=== PATIENT | male | born 1960 | race Caucasian/White ===

== ENCOUNTER → 2018-07-05 06:48 | Outpatient (CLI) | payer BC, SELFPAY ==
[2018-07-05 07:38] LABS: Blood Urea Nitrogen 15 mg/dL (7-18); Creatinine,Serum 1.01 mg/dL (0.70-1.30); Estimated Glomerular Filt Rate 75 ml/min (>60); GFR (African American) 91 ML/MIN (>60)
--- NOTE | 2018-07-05 07:44 | CT_ITS ---
CT angio coronary artery INDICATION: ITS.REASON: FAMILY HX OF CAD,ELEVATED CHOLESTEROL ORDERING PHYSICIAN: Chicho Houser MD PATIENT AGE: 58 years COMPARISON: None TECHNIQUE: Bradycardia was obtained with 50 mg by mouth metoprolol. Standard gated technique with intravenous administration of 60 mL of Isovue-370. Multi plantar, curved planar reformats, and 3-D reformatted polymerase drain images are obtained.. All CT scans at the facility use one or more dose reduction, viz: automated exposure control, ma/kV adjustment per patient size (including targeted exams where dose is matched to indication, i.e. head), or iterative reconstruction technique. FINDINGS: There is mild prominence of the coronary cusp from which the left main coronary artery originates. This is of questionable clinical significance. There is a small amount of eccentric calcific plaque at the left main coronary artery without significant stenosis. This is causing approximately 20% narrowing of the ostium of the left main coronary artery. Eccentric calcific plaque is also present involving the proximal aspect of the LAD with approximately 25% luminal narrowing. Small amount of soft plaque is present just distal to the calcific plaque with no significant narrowing. The ventricles have an unremarkable appearance. There is left-sided dominance with the circumflex giving rise to the GDA and posterior lateral branch to the left ventricle. The PLB is a fairly prominent vessel. There is a small amount of soft plaque involving the distal aspect of the circumflex just proximal to the posterior lateral branch to the left ventricle origin causing approximately 30% stenosis. The right coronary artery a smaller vessel. No significant plaque appearance. IMPRESSION: 1. Calcific plaque at the ostium of the left main coronary artery with approximately 20% stenosis 2. Small area of calcific plaque at the proximal LAD with approximately 25% luminal narrowing with a small amount soft plaque distal to this region 3. Left-sided dominance with small amount soft plaque at the distal circumflex with approximately 30% stenosis
== END ==
PROVIDERS: PCP Family Medicine; Visit Provider Family Medicine
DX: E78.00 Pure hypercholesterolemia, unspecified (principal); Z82.49 Family history of ischemic heart disease and other diseases of the circulatory system
CPT/HCPCS: 75574; 82565; 84520; Q9967

== ENCOUNTER → 2021-09-21 13:04 | Outpatient (CLI) | payer BC, SELFPAY ==
--- NOTE | 2021-09-21 13:11 | CT_ITS ---
FINAL REPORT CLINICAL HISTORY: FLANK PAIN, MICROSCOPIC HEMATURIA FINDINGS: Axial CT images of the abdomen and pelvis were obtained without intravenous contrast. Coronal reformatted images were also obtained.This study was performed with techniques to keep radiation doses as low as reasonably achievable (ALARA). Individualized dose reduction techniques using automated exposure control or adjustment of mA and/or kV according to the patient''s size were employed. Abdomen: The lung bases are clear. There is mild right hydronephrosis secondary to a 7 mm right UPJ stone. There are gallstones in the gallbladder. The liver, spleen and pancreas have an unremarkable, unenhanced appearance. No mass or adenopathy is seen. No inflammatory process is identified. Pelvis: The appendix is normal. There are multiple mildly enlarged mesenteric nodes which may be reactive. There is sigmoid diverticulosis with no evidence of diverticulitis. There is a small left inguinal hernia containing fat. IMPRESSION: 7 mm right UPJ stone resulting in mild right hydronephrosis. Gallstones in the gallbladder. Multiple mildly enlarged mesenteric nodes may be reactive. Reviewed, Interpreted and Dictated by Derek Gonzalez III, MD Transcribed by Nikki Jordan Authenticated by Derek Gonzalez III, MD on 09/21/2021 03:25:40 PM [facility]
== END ==
PROVIDERS: PCP Family Medicine; Visit Provider Family Medicine
DX: R10.9 Unspecified abdominal pain (principal); R31.29 Other microscopic hematuria
CPT/HCPCS: 74176

== ENCOUNTER → 2022-07-28 10:20 | Outpatient (CLI) | payer BC, SELFPAY ==
[2022-07-28 19:29] LABS: Chloride 102 mmol/L (98-107); Potassium 4.2 mmoL/L (3.5-5.1); Sodium 138 mmol/L (136-145)
[2022-07-28 19:31] LABS: Blood Urea Nitrogen 12 mg/dl (9-20); Estimated Glomerular Filt Rate 85 ml/min (>60); GFR (African American) 103 ML/MIN (>60)
[2022-07-28 19:32] LABS: Alanine Aminotransferase 24 U/L (12-78); Albumin Level 4.7 g/dl (3.5-5.0); Albumin/Globulin Ratio 1.9 (1.1-1.8); Alkaline Phosphatase 58 U/L (38-126); Anion Gap 14.2 mEq/L (5-15); Aspartate Amino Transferase 28 U/L (17-59); Calcium 9.4 mg/dl (8.4-10.2); Carbon Dioxide 26 mmol/L (22.0-30.0); Chol/HDL Ratio 3.4 (1-3.5); Cholesterol 195 mg/dl (140-200); Globulin 2.5 g/dL (1.3-3.2); Glucose 97 mg/dl (74-100); HDL Cholesterol 57 mg/dl (40-60); Total Protein,Serum 7.2 g/dl (6.3-8.2); Triglycerides 126 mg/dl (30-150); VLDL Cholesterol 25 mg/dL (0-40)
[2022-07-28 19:44] LABS: Direct LDL Cholesterol 104.26 mg/dL (100-129)
[2022-07-28 20:02] LABS: Prostate Specific Ag Screen 1.2 ng/ml (0.0-4.0); Thyroid Stimulating Hormone 1.48 uIU/mL (0.465-4.68)
== END ==
PROVIDERS: PCP Family Medicine; Visit Provider Family Medicine
DX: E78.5 Hyperlipidemia, unspecified (principal); R30.0 Dysuria; R31.29 Other microscopic hematuria; Z51.81 Encounter for therapeutic drug level monitoring; Z79.01 Long term (current) use of anticoagulants; Z12.5 Encounter for screening for malignant neoplasm of prostate
CPT/HCPCS: 80053; 80061; 84443; 87086; G0103

== ENCOUNTER 2023-02-17 11:05 | Emergency (ER) | payer BC, SELFPAY ==
[2023-02-17 11:16] VITALS: BP 145/95; PULSE 75; RESP 16; TEMP 36.6; O2SAT 95; BMI 25.8
--- NOTE | 2023-02-17 11:17 | CT_ITS ---
FINAL REPORT TECHNIQUE: Noncontrast exam CLINICAL HISTORY: flank pain, hematuria hx of kidney stones COMPARISON: 09/21/2021 FINDINGS: Abdomen: Lung bases are clear. Liver, spleen, pancreas and adrenal glands have a normal CT appearance in their limited unenhanced state. The gallbladder is surgically absent. The kidneys show no stone disease or obstruction. No obvious renal mass is present. No ureteral stones are present. Pelvis: No distal ureteral stones are seen. Bladder wall is thickened with adjacent stranding, which may represent cystitis. The appendix is normal in appearance. Mild sigmoid diverticulosis is present.. No fluid collection or adenopathy is seen. IMPRESSION: No evidence of upper urinary tract stone disease or obstruction Bladder wall thickening with adjacent stranding which may represent inflammatory change. Correlate with urinalysis. Reviewed, Interpreted and Dictated by Aurora Jean MD Transcribed by Lora Jiménez Authenticated and [facility]
--- NOTE | 2023-02-17 11:18 | HMH.EDGENADL ---
Discharge Plan Disposition Patient Disposition: Home, Self-Care Condition: Good Prescriptions Prescriptions: No Action Xarelto 10 mg tablet 10 mg PO DAILY atorvastatin 10 mg tablet 10 mg PO DAILY Patient Comments: TAKE 1 TABLET BY MOUTH EVERY DAY sertraline 50 mg tablet See Rx Instructions .ROUTE .COMPLEX Qty: 90 0RF Dose Instruction: TAKE 1 TABLET BY MOUTH EVERY DAY Rx Instructions: TAKE 1 TABLET BY MOUTH EVERY DAY Referrals Follow up/Referrals: Chicho Houser MD [Primary Care Provider] - See instructions James Ariza MD [Referring] - See instructions Activity Restrictions/Add. Instructions Additional Instructions/Restrictions: You were evaluated in the emergency department today. Please follow-up closely with your primary care provider. I am also giving you the information for Dr. Ariza, who is a urologist. I recommend close follow-up with him. Urology will be able to do further testing to determine why you are having hematuria, as there is no evidence of stones on CT scan. Return to the emergency department for any new or worsening symptoms. Make sure that you stay orally hydrated at home. Clinical Impressions Clinical Impression: Gross hematuria Instructions Patient Instructions: DI for Acute Abdominal Pain, DI for Hematuria Discharge ED Provider: Kalani Quiñones General Adult HPI General Chief complaint: Abdominal Pain Stated complaint: blood in urine Time Seen by Provider: 02/17/23 11:12 History of Present Illness HPI narrative: This patient is a 63-year-old male with a history of PE on Xarelto, hyperlipidemia, panic disorder, and multiple kidney stones in the past presenting to the emergency department for evaluation of hematuria and bilateral flank pain. He reports that this has been intermittent for the past 3 weeks. 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 He states that he is he is still and does not do a lot of activity, he does not have hematuria or flank pain. He denies any fevers, chills, nausea, vomiting, changes in bowel movements, dysuria, urinary retention, or other concerns. Related Data Home Medications Medication Instructions Recorded Confirmed atorvastatin 10 mg tablet 10 mg PO DAILY 07/28/22 07/28/22 rivaroxaban 10 mg tablet (Xarelto) 10 mg PO DAILY 07/28/22 07/28/22 Previous Rx's Medication Instructions Recorded sertraline 50 mg tablet See Rx Instructions .Route 01/24/23 .COMPLEX #90 tabs Allergies Allergy/AdvReac Type Severity Reaction Status Date / Time No Known Drug Allergies Allergy Unknown Verified 07/28/22 09:07 [NKDA] [facility] Disclaimer: The information contained in this section may have been updated after the patient was seen, as this information can be updated by other users. Medical History Dysuria History of pulmonary embolism Hyperlipidemia correction current use of anticoagulant Social History Smoking Status: Former smoker alcohol intake: current current occupational status: employed Travel in the last 8 weeks: None ROS Obtained: Yes All systems reviewed & no additional complaints except as documented 14 point review of systems obtained and negative except as mentioned in HPI Physical Exam General General appearance: alert and in no apparent distress Head Head exam: atraumatic and normocephalic Eye Eye exam: Present normal appearance, PERRL and EOMI ENT ENT exam: Present normal exam, normal oropharynx and mucous membranes moist Neck Neck exam: Present normal inspection and full ROM; Absent trachea midline Chest Chest inspection: Present normal inspection and symmetric chest wall rise; Absent tenderness Respiratory Respiratory exam: Present normal lung sounds bilaterally; Absent respiratory distress or
[2023-02-17 11:28] LABS: Microscopic, Urine URINE MICROSCOPIC (MICROSCOPIC)
[2023-02-17 11:40] LABS: Basophils # 0.1 K/mm3 (0-0.2); Basophils % 0.9 % (0.1-2.0); Eosinophils # 0.1 K/mm3 (0.0-0.4); Eosinophils % 1.7 % (0.1-12.0); Hematocrit 45.5 % (42.0-52.0); Hemoglobin 14.6 g/dL (14.1-18.0); Lymphocytes # 1.3 K/mm3 (0.7-4.5); Lymphocytes % 26.6 % (10-50); Mean Corpuscular Volume 100.1 fl (80-94); Mean Platelet Volume 8.1 fl (7.4-10.4); Monocytes # 0.3 K/mm3 (0.1-1.0); Monocytes % 6.3 % (1.7-9.3); Neutrophils # 3.2 K/mm3 (1.8-7.8); Neutrophils % 64.5 % (37.0-80.0); Platelet Count 193 K/mm3 (142-424); Red Blood Count 4.54 M/mm3 (4.60-6.20); Red Cell Distribution Width 13.3 % (11.5-17.5)
[2023-02-17 11:46] LABS: Appearance,Urine SL CLOUDY (Clear); Blood, Urine 3+ (Negative); Color,Urine AMBER (Yellow); Glucose,Urine (UA) Negative (Negative); Ketones,Urine Negative (Negative); Leukocyte Esterase,Urine Negative (Negative); Nitrate,Urine Negative (Negative); PH,Urine 7.5 (5.0-8.5); Protein,Urine 1+ (Negative)
[2023-02-17 11:47] LABS: Chloride 104 mmol/L (98-107); Potassium 4.1 mmoL/L (3.5-5.1); Sodium 138 mmol/L (136-145)
[2023-02-17 11:50] LABS: Blood Urea Nitrogen 23 mg/dl (9-20); Creatinine Clearance Estimated 85 mL/min (50-200); Estimated Glomerular Filt Rate 85 ml/min (>60); GFR (African American) 102 ML/MIN (>60)
[2023-02-17 11:51] LABS: Anion Gap 9.1 mEq/L (5-15); Calcium 9.5 mg/dl (8.4-10.2); Carbon Dioxide 29 mmol/L (22.0-30.0); Glucose 99 mg/dl (74-100)
[2023-02-17 12:00] LABS: Bacteria,Urine Trace /lpf; Bilirubin,Urine Negative (Negative); RBC,Urine 20-50 #/hpf (0-3); Squamous Epithelial Cell,Urine Occasional #/hpf (0-5)
--- NOTE | 2023-02-17 12:00 | PC.NURSE ---
ROUNDED ON PT NOTHING NEEDED AT THIS TIME, CALL LIGHT AT BS
[2023-02-17 12:11] LABS: Activated Partial Thrombo Time 25.8 seconds (22.8-30.6); INR 1.03 (0.9-1.1); Prothrombin Time 11.1 seconds (10.1-12.5)
[2023-02-17 12:25] VITALS: BP 123/83; PULSE 70; O2SAT 100
--- NOTE | 2023-02-17 12:27 | PC.NURSE ---
rounded on pt at this time, no needs voiced. updated pt on POC. awaiting for the results from RAD report. behavioral health technician states that scan is in locked status
[2023-02-17 12:46] VITALS: BP 128/76; PULSE 66; O2SAT 98
--- NOTE | 2023-02-17 12:46 | PC.NURSE ---
rounded on pt, no needs at this time, updated pt
[2023-02-17 13:00] VITALS: BP 135/79; PULSE 66; O2SAT 99
[2023-02-17 13:16] VITALS: BP 135/79; PULSE 66; RESP 16; TEMP 36.6
== END 2023-02-17 13:20 | disposition home or self-care (01) ==
PROVIDERS: Emergency Provider Emergency Medicine; PCP Family Medicine
DX: R10.9 Unspecified abdominal pain (principal); R31.9 Hematuria, unspecified; E78.5 Hyperlipidemia, unspecified; Z79.01 Long term (current) use of anticoagulants; Z87.891 Personal history of nicotine dependence
CPT/HCPCS: 74176; 80048; 81001; 85025; 85610; 85730; 87086; 99285

== ENCOUNTER 2025-06-06 07:59 | Day surgery (SDC) | payer BC, SELFPAY ==
--- NOTE | 2025-06-04 07:34 | P.HP_ITS ---
History of Present Illness *Admission Date: 06/06/25 *History of present illness: Mr. Murray is a 65-year-old gentleman who is here for screening/surveillance colonoscopy. The patient's last colonoscopy was in 2007. The examination is deemed medically necessary for screening/surveillance colonoscopy. The patient has been seen, interviewed and examined prior to the procedure by both myself and the anesthesia provider. [facility] Disclaimer: The information contained in this section may have been updated after the patient was seen, as this information can be updated by other users. 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 History of pulmonary embolism Dysuria Hyperlipidemia Surgical History History of bladder surgery Family History Other Family history of heart disease Social History Smoking Status: Former smoker alcohol intake: never current occupational status: employed and retired Travel in the last 8 weeks?: None Have you lived/traveled outside [place] in past 30 days?: No Contact w/someone who lives/traveled outside US past 30 days?: No Exposure to someone with infectious disease in past 14 days?: No Do you have a fever (greater than 100.4 F or 38 C)?: No Have you tested positive for COVID-19?: No Exposed to someone with COVID-19 in past 14 days?: No Do you have a sore throat?: No Do you have a cough?: No Do you have any weakness?: No Are you experiencing any nausea/vomitting?: No Do you have any diarrhea?: No Are you experiencing any unusual bleeding?: No Do you have any muscle aches/pain?: No Do you have any abdominal pain?: No Are you experiencing loss of taste or smell?: No Other Medical History Have you received the Flu Vaccine for this season: Yes Have you received the Pneumonia Vaccine: No Review of Systems Review of Systems Review of systems (narrative): Negative *Cardiovascular Comments: Negative *Gastrointestinal Comments: Negative *Genitourinary Comments: Negative *Musculoskeletal Comments: Negative *Neurologic Comments: Negative Meds Home Medications and Allergies Home Medications ?Medication ?Instructions ?Recorded ?Confirmed ?Type atorvastatin 10 mg tablet 10 mg PO DAILY 07/28/2205/25 History rivaroxaban 10 mg tablet (Xarelto) 10 mg PO DAILY 11/1406/06/25 History sertraline 50 mg tablet See Rx Instructions .Route 0 01/24/23 06/06/25 Rx .COMPLEX #90 tabs sodium,potassium,mag sulfates 17.5 See Rx Instructions PO .COMPLEX 05/23/25 06/06/25 Rx gram-3.13 gram-1.6 gram oral soln #354 mL (Suprep Bowel Prep Kit) sodium,potassium,mag sulfates 17.5 See Rx Instructions PO .COMPLEX 05/24/25 06/06/25 Rx gram-3.13 gram-1.6 gram oral soln #354 mL (Suprep Bowel Prep Kit) New Prescriptions to Start Prescriptions: Allergies Allergy/AdvReac Type Severity Reaction Status Date / Time No Known Drug Allergies Allergy Unknown Verified 07/28/22 09:07 (NKDA) Exam *Routine HEENT Exam Head: Present normocephalic Eye: Present EOMI and PERRL ENT: Present mucous membranes moist *Routine Neck Exam Neck: Present supple *Routine Respiratory Exam Respiratory: Present CTA bilaterally *Routine Cardiovascular Exam Cardiovascular: Present RRR *Routine Abdominal Exam Abdominal: Present soft and normoactive bowel sounds; Absent tenderness *Routine Rectal Exam Rectal:: deferred *Routine Genitalia Exam Genitalia:: deferred *Routine Extremities Exam Extremities: Absent cyanosis, clubbing or edema *Routine Skin Exam Skin: Present warm; Absent rash *Routine Neurological Exam Neurological: Present alert and oriented X3 Assessment and Plan *Assessment and plan (1) Screening for colon cancer: Status: Acute Category: Medical Code(s): Z12.11 - Encounter for screening for malignant neoplasm of colon Plan A/P: 1. Screening for colon cancer is the preprocedural diagnosis. The patient will be anesthetized/sedated using MAC sedation. The patient has been seen and examined. Cardiac and lung assessment prior to the examination is stable. Proceed with planned screening colonoscopy.
[2025-06-05 16:00] VITALS: BMI 27.2
--- NOTE | 2025-06-06 06:53 | HMH.PROCNOTE ---
[facility] Procedure Note Date: 06/06/25 Time: 09:58 Procedure Note:: Colonoscopy Procedure Report: Colonoscopy with cold snare polypectomy Endoscopist: Tyrel Kumar II, MD Referring physician: Chicho Houser MD Date of Procedure: June 06, 2025 Equipment: Olympus [id number] adult colonoscope Sedation: MAC sedation Indication: Mr. Murray is a 65-year-old gentleman who is here for screening/surveillance colonoscopy. The patient reports no abdominal pain, weight loss, change in his bowel habits or rectal bleeding. He reports no family history of colon cancer. The patient does have a personal history of bladder cancer and does have a ureterostomy. The patient's last colonoscopy was prior to 2011 (reportedly in 2007). The examination is deemed medically necessary for screening/surveillance colonoscopy. Procedure: Prior to the procedure, a history and physical exam was performed, and patient's medications and allergies were reviewed. The risks, benefits and alternatives of the sedation and procedure were discussed with the patient. All questions were answered and informed consent was obtained. The patient was brought to the procedure room. Patient identification and proposed procedure were verified by the physician and the nurse. The patient was placed in a left lateral decubitus position and the scope was passed under direct vision. Throughout the procedure, the patient's blood pressure, pulse, and oxygen saturations were monitored continuously. The colonoscopy was accomplished without difficulty. The patient tolerated the procedure well. Findings: On digital rectal examination there was normal rectal tone. There were no external hemorrhoids. The colonoscope was introduced through the anal canal to the rectum and advanced to the cecum. The ileocecal valve and appendiceal orifice were identified. The scope was advanced a short distance into the ileum which appeared grossly normal. The scope was then withdrawn into the colon. The cecum, ascending and transverse colon and mucosa were grossly normal. There were scattered diverticuli throughout the descending and sigmoid colon (LEFT colon). There was a single 4 mm polyp in the descending colon removed via cold snare polypectomy. The rectum itself was normal. Upon retroflexion within the rectum there were grade 1-2 internal hemorrhoids. The preparation was excellent throughout with [place] Preparation Score of 9. The cecal time was 12 minutes. Impression: 1. Diminutive descending colon polyp (4 mm) 2. Left-sided diverticulosis 3. Grade 1-2 internal hemorrhoids Plan: I will follow-up the polyp histology and recommend repeat screening/surveillance colonoscopy again in 7 to 10 years based upon the pathology. I would encourage psyllium bulking fiber supplementation on a maintenance basis.
[2025-06-06 08:48] VITALS: BP 117/72; PULSE 74; RESP 18; TEMP 36.1; O2SAT 99; BMI 27.2
[2025-06-06] MEDS: LACTATED RINGERS 1000ML 1,000 ML 50 ML IV (09:00)
--- NOTE | 2025-06-06 09:24 | EXP.ANES.CKL ---
[facility] Disclaimer: The information contained in this section may have been updated after the patient was seen, as this information can be updated by other users. Medical History Bladder cancer halfway current use of anticoagulant History of pulmonary embolism Dysuria Hyperlipidemia Surgical History History of bladder surgery Family History Other Family history of heart disease Social History Smoking Status: Former smoker alcohol intake: never substance use type: denies use current occupational status: employed and retired Travel in the last 8 weeks?: None [facility] Anesthesia Checklist Patient Identification Patient Identification: Arm Band and Family Structural Data Admitted From: Home Planned Operative Procedure/s: colonoscopy Consent for Planned Operative Procedure(s) Verified: Yes Verified Documents: Surgical Consent NPO Status Verified Time NPO: 00:00 Additional verifications Patient : No Anesthesia Reactions: No Hx Blood Transfusions: No Blood Transfusion Reaction: No Cephalosporin Allergy: No Airway Assessment Mallampati Score:: Class II C-Spine Mobility Assessed: Yes TMJ Mobility Assessed: Yes Dentition: Poor Dentition Neurological Assessment Level of Consciousness: Awake, Alert, Appropriate and Follows Commands Hx Seizures: No Numbness or tingling in extremities: No Anesthesia Plan Anesthesia Risk discussed: Yes ASA Class: II Anesthesia Type: MAC Preoperative Comments Pre-Operative Comments: Dental implants.
[2025-06-06 09:57] VITALS: BP 92/62; PULSE 75; RESP 16; TEMP 36.1; O2SAT 93
[2025-06-06 10:07] VITALS: BP 99/64; PULSE 61; RESP 18; O2SAT 95
[2025-06-06 10:17] VITALS: BP 100/70; PULSE 60; RESP 18; O2SAT 96
[2025-06-06 10:27] VITALS: BP 124/66; PULSE 78; RESP 18; O2SAT 99
== END 2025-06-06 10:30 | disposition home or self-care (01) ==
PROVIDERS: PCP Family Medicine; Visit Provider Internal Medicine Gastroenterology
PROC: 0DJD8ZZ Inspection of Lower Intestinal Tract, Via Natural or Artificial Opening Endoscopic (ICD-10-PCS; CPT 45378; principal; 2025-06-06 09:30)
DX: Z12.11 Encounter for screening for malignant neoplasm of colon (principal); D12.4 Benign neoplasm of descending colon; K64.0 First degree hemorrhoids; K64.1 Second degree hemorrhoids; K57.30 Diverticulosis of large intestine without perforation or abscess without bleeding; E78.5 Hyperlipidemia, unspecified; Z87.891 Personal history of nicotine dependence; Z79.01 Long term (current) use of anticoagulants; Z85.51 Personal history of malignant neoplasm of bladder
CPT/HCPCS: 45385; J2003; J2704; J7120